=== PATIENT | male | born 1940 ===

== ENCOUNTER 2022-08-05 08:04 | Outpatient (CLI) | payer MEDICARE, BC, SELFPAY ==
--- NOTE | 2022-08-05 08:00 | RT.EKG_ITS ---
APPROVED REPORT Exam: Resting ECG Reason for Exam: ASCVD Patient Location: O HR:64 bpm ECG Measurements Heart Rate 64 AXIS NC 123 P -5 QRSd 94 QRS 41 QT 405 T 46 QTc 418 Conclusion Sinus rhythm...normal P axis, V-rate 50- 99 Normal Electrocardiogram
== END 2022-08-05 08:05 | disposition home or self-care (01) ==
LOC: DI.CARD 08:05
PROVIDERS: Visit Provider Internal Medicine Cardiovascular Disease
DX: I25.10 Atherosclerotic heart disease of native coronary artery without angina pectoris (principal)
CPT/HCPCS: 93010

== ENCOUNTER → 2022-08-05 13:59 | Outpatient (BNVA) | payer MEDICARE, OTHER, SELFPAY | PROVIDERS: Visit Provider Internal Medicine Cardiovascular Disease | DX: I25.10 Atherosclerotic heart disease of native coronary artery without angina pectoris (principal) | CPT/HCPCS: 99203 ==

== ENCOUNTER 2023-09-19 15:59 | Outpatient (RCR) | payer MEDICARE, OTHER, SELFPAY | END 2023-09-21 23:59 | disposition home or self-care (01) | LOC: CR 15:59 | PROVIDERS: Visit Provider Internal Medicine Interventional Cardiology | DX: I70.90 Unspecified atherosclerosis (principal) ==

== ENCOUNTER 2023-09-24 11:31 | Outpatient (RCR) | payer MEDICARE, OTHER, SELFPAY | END 2023-10-22 23:59 | disposition home or self-care (01) | LOC: CR 11:31 | PROVIDERS: Visit Provider Internal Medicine Interventional Cardiology | DX: R69 Illness, unspecified (principal) ==

== ENCOUNTER 2023-11-17 10:00 | Outpatient (RCR) | payer MEDICARE, OTHER, SELFPAY | END 2023-11-20 23:59 | disposition home or self-care (01) | LOC: CR 10:00 | PROVIDERS: Visit Provider Internal Medicine Cardiovascular Disease | DX: I25.810 Atherosclerosis of coronary artery bypass graft(s) without angina pectoris (principal); Z51.89 Encounter for other specified aftercare | CPT/HCPCS: S9472 ==

== ENCOUNTER 2023-12-19 10:07 | Outpatient (RCR) | payer MEDICARE, BC, OTHER, SELFPAY | END 2023-12-21 23:59 | disposition home or self-care (01) | LOC: CR 10:07 | PROVIDERS: Visit Provider Internal Medicine Cardiovascular Disease | DX: I25.810 Atherosclerosis of coronary artery bypass graft(s) without angina pectoris (principal); Z51.89 Encounter for other specified aftercare | CPT/HCPCS: S9472 ==

== ENCOUNTER 2024-01-19 10:18 | Outpatient (RCR) | payer MEDICARE, OTHER, SELFPAY ==
--- NOTE | 2024-01-14 10:00 | RT.EKG_ITS ---
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
== END 2024-01-20 23:59 | disposition home or self-care (01) ==
LOC: CR 10:18
PROVIDERS: Visit Provider Internal Medicine Cardiovascular Disease
DX: I25.810 Atherosclerosis of coronary artery bypass graft(s) without angina pectoris (principal); Z51.89 Encounter for other specified aftercare
CPT/HCPCS: S9472

== ENCOUNTER 2024-02-04 10:34 | Outpatient (RCR) | payer MEDICARE, OTHER, SELFPAY | END 2024-02-20 23:59 | disposition home or self-care (01) | LOC: CR 10:34 | PROVIDERS: Visit Provider Internal Medicine Cardiovascular Disease | DX: I25.810 Atherosclerosis of coronary artery bypass graft(s) without angina pectoris (principal); Z51.89 Encounter for other specified aftercare | CPT/HCPCS: S9472 ==

== ENCOUNTER 2024-03-18 10:19 | Outpatient (RCR) | payer SELFPAY ==
[2024-02-24 10:39] VITALS: BP 148/80; PULSE 79
[2024-02-26 14:20] VITALS: BP 153/82; PULSE 64
[2024-03-02 11:54] VITALS: BP 128/78; PULSE 80
[2024-03-04 12:24] VITALS: BP 143/70; PULSE 73
[2024-03-09 13:14] VITALS: BP 161/73; PULSE 76
[2024-03-11 10:25] VITALS: BP 146/77; PULSE 74
[2024-03-18 10:10] VITALS: BP 184/92; PULSE 66
== END 2024-03-21 23:59 | disposition home or self-care (01) ==
LOC: CR 10:19
PROVIDERS: Visit Provider Internal Medicine Cardiovascular Disease
DX: R69 Illness, unspecified (principal)

== ENCOUNTER 2024-04-15 10:00 | Outpatient (RCR) | payer SELFPAY ==
[2024-03-30 09:54] VITALS: BP 165/84; PULSE 90
[2024-04-08 13:33] VITALS: BP 126/84; PULSE 90
[2024-04-15 10:00] VITALS: BP 155/82; PULSE 68
== END 2024-04-21 23:59 | disposition home or self-care (01) ==
LOC: CR 10:00
PROVIDERS: Visit Provider Internal Medicine Cardiovascular Disease
DX: R69 Illness, unspecified (principal)

== ENCOUNTER 2024-05-20 10:10 | Outpatient (RCR) | payer SELFPAY ==
[2024-04-22 00:33] VITALS: BP 155/82; PULSE 68
[2024-04-22 09:50] VITALS: BP 167/81; PULSE 65
[2024-04-27 13:46] VITALS: BP 151/81; PULSE 73
[2024-04-29 10:28] VITALS: BP 170/86; PULSE 65
[2024-05-04 09:54] VITALS: BP 155/81; PULSE 74
[2024-05-06 10:23] VITALS: BP 181/87; PULSE 74
[2024-05-11 10:21] VITALS: BP 124/73; PULSE 74
[2024-05-13 10:00] VITALS: BP 151/80; PULSE 93
[2024-05-18 10:03] VITALS: BP 157/81; PULSE 63
[2024-05-20 10:20] VITALS: BP 131/65; PULSE 72
== END 2024-05-22 23:59 | disposition home or self-care (01) ==
LOC: CR 10:10
PROVIDERS: Visit Provider Internal Medicine Cardiovascular Disease
DX: R69 Illness, unspecified (principal)

== ENCOUNTER 2024-06-17 09:59 | Outpatient (RCR) | payer SELFPAY ==
[2024-05-23 00:31] VITALS: BP 155/82; PULSE 68
[2024-05-25 10:28] VITALS: BP 155/71; PULSE 66
[2024-05-27 10:15] VITALS: BP 134/69; PULSE 67
[2024-06-01 10:12] VITALS: BP 117/68; PULSE 74
[2024-06-03 10:29] VITALS: BP 90/53; PULSE 77
[2024-06-08 10:54] VITALS: BP 117/64; PULSE 76
[2024-06-10 10:55] VITALS: BP 137/78; PULSE 72
[2024-06-15 10:25] VITALS: BP 113/61; PULSE 75
[2024-06-17 10:01] VITALS: BP 119/68; PULSE 81
== END 2024-06-21 23:59 | disposition home or self-care (01) ==
LOC: CR 09:59
PROVIDERS: Visit Provider Internal Medicine Cardiovascular Disease
DX: R69 Illness, unspecified (principal)
CPT/HCPCS: S9472

== ENCOUNTER 2024-07-22 09:53 | Outpatient (RCR) | payer SELFPAY ==
[2024-06-22 13:19] VITALS: BP 139/75; PULSE 70
[2024-06-24 10:00] VITALS: BP 142/74; PULSE 74; O2SAT 97
[2024-06-29 10:07] VITALS: BP 142/72; PULSE 67
[2024-07-01 13:14] VITALS: BP 142/75; PULSE 69
[2024-07-06 10:00] VITALS: BP 129/61; PULSE 68
[2024-07-08 09:44] VITALS: BP 118/59; PULSE 65; O2SAT 98
[2024-07-13 10:15] VITALS: BP 145/76; PULSE 71
[2024-07-15 09:57] VITALS: BP 122/65; PULSE 66; O2SAT 98
[2024-07-20 10:15] VITALS: BP 150/70; PULSE 68
[2024-07-22 10:58] VITALS: BP 157/80; PULSE 84
== END 2024-07-22 23:59 | disposition home or self-care (01) ==
LOC: CR 09:53
PROVIDERS: Visit Provider Internal Medicine Cardiovascular Disease
DX: R69 Illness, unspecified (principal)

== ENCOUNTER 2024-08-17 10:00 | Outpatient (RCR) | payer SELFPAY ==
[2024-07-23 00:15] VITALS: BP 157/80; PULSE 84
[2024-07-27 10:07] VITALS: BP 128/70; PULSE 75
[2024-08-03 10:00] VITALS: BP 108/63; PULSE 66
[2024-08-05 09:52] VITALS: BP 129/75; PULSE 68
[2024-08-10 10:08] VITALS: BP 141/77; PULSE 74
[2024-08-12 10:10] VITALS: BP 130/72; PULSE 64
[2024-08-17 13:45] VITALS: BP 140/69; PULSE 68
== END 2024-08-21 23:59 | disposition home or self-care (01) ==
LOC: CR 10:00
PROVIDERS: Visit Provider Internal Medicine Cardiovascular Disease
DX: R69 Illness, unspecified (principal)

== ENCOUNTER 2024-09-09 10:14 | Outpatient (RCR) | payer SELFPAY ==
[2024-08-22 00:23] VITALS: BP 157/80; PULSE 84
[2024-08-24 10:40] VITALS: BP 129/64; PULSE 71
[2024-08-26 09:52] VITALS: BP 139/69; PULSE 65
[2024-09-02 09:57] VITALS: BP 153/75; PULSE 72
[2024-09-07 10:07] VITALS: BP 143/77; PULSE 67
[2024-09-09 10:21] VITALS: BP 129/69; PULSE 62
== END 2024-09-21 23:59 | disposition home or self-care (01) ==
LOC: CR 10:14
PROVIDERS: Visit Provider Internal Medicine Cardiovascular Disease
DX: R69 Illness, unspecified (principal)

== ENCOUNTER 2024-12-16 10:01 | Outpatient (RCR) | payer SELFPAY ==
[2024-12-14 11:18] VITALS: BP 128/73; PULSE 80
[2024-12-16 10:05] VITALS: BP 123/64; PULSE 78; O2SAT 98
== END 2024-12-20 23:59 | disposition home or self-care (01) ==
LOC: CR 10:01
PROVIDERS: PCP Internal Medicine; Visit Provider Internal Medicine Cardiovascular Disease
DX: R69 Illness, unspecified (principal)

== ENCOUNTER 2025-01-18 10:26 | Outpatient (RCR) | payer SELFPAY ==
[2024-12-21 00:22] VITALS: BP 123/64; PULSE 78
[2024-12-21 11:04] VITALS: BP 153/77; PULSE 68
[2024-12-28 10:48] VITALS: BP 118/65; PULSE 70
[2025-01-04 10:52] VITALS: BP 144/71; PULSE 68
[2025-01-06 10:22] VITALS: BP 120/69; PULSE 72
[2025-01-11 12:33] VITALS: BP 110/64; PULSE 73
[2025-01-13 10:13] VITALS: BP 123/65; PULSE 63
[2025-01-18 10:30] VITALS: BP 122/65; PULSE 75
== END 2025-01-19 23:59 | disposition home or self-care (01) ==
LOC: CR 10:26
PROVIDERS: PCP Internal Medicine; Visit Provider Internal Medicine Cardiovascular Disease
DX: R69 Illness, unspecified (principal)

== ENCOUNTER 2025-02-17 10:32 | Outpatient (RCR) | payer SELFPAY ==
[2025-01-20 00:21] VITALS: BP 123/64; PULSE 78
[2025-01-20 11:06] VITALS: BP 110/65; PULSE 71
[2025-01-25 10:24] VITALS: BP 125/68; PULSE 69
[2025-01-27 10:23] VITALS: BP 119/64; PULSE 73
[2025-02-01 12:04] VITALS: BP 124/74; PULSE 77
[2025-02-03 10:49] VITALS: BP 133/74; PULSE 77
[2025-02-08 10:18] VITALS: BP 120/67; PULSE 70
[2025-02-10 10:12] VITALS: BP 125/67; PULSE 71
[2025-02-15 12:02] VITALS: BP 114/58; PULSE 79
[2025-02-17 10:56] VITALS: BP 128/67; PULSE 67
== END 2025-02-19 23:59 | disposition home or self-care (01) ==
LOC: CR 10:32
PROVIDERS: PCP Internal Medicine; Visit Provider Internal Medicine Cardiovascular Disease
DX: R69 Illness, unspecified (principal)

== ENCOUNTER 2025-03-15 10:00 | Outpatient (RCR) | payer SELFPAY ==
[2025-02-20 00:13] VITALS: BP 123/64; PULSE 78
[2025-02-22 11:13] VITALS: BP 117/69; PULSE 69
[2025-02-24 10:16] VITALS: BP 112/68; PULSE 77
[2025-03-01 10:34] VITALS: BP 114/67; PULSE 74
[2025-03-03 11:29] VITALS: BP 130/73; PULSE 79
[2025-03-08 10:09] VITALS: BP 111/67; PULSE 74
[2025-03-10 10:41] VITALS: BP 106/62; PULSE 76
[2025-03-15 10:20] VITALS: BP 98/59; PULSE 77
== END 2025-03-21 23:59 | disposition home or self-care (01) ==
LOC: CR 10:00
PROVIDERS: PCP Internal Medicine; Visit Provider Internal Medicine Cardiovascular Disease
DX: R69 Illness, unspecified (principal)

== ENCOUNTER 2025-06-28 10:03 | Outpatient (RCR) | payer SELFPAY ==
[2025-06-28 10:05] VITALS: BP 122/72; PULSE 79
== END 2025-07-22 23:59 | disposition home or self-care (01) ==
LOC: CR 10:03
PROVIDERS: PCP Internal Medicine; Visit Provider Internal Medicine Cardiovascular Disease
DX: R69 Illness, unspecified (principal)

== ENCOUNTER 2025-08-11 10:00 | Outpatient (RCR) | payer SELFPAY ==
[2025-07-23 00:26] VITALS: BP 122/72; PULSE 79
[2025-07-28 11:26] VITALS: BP 128/76; PULSE 101
[2025-08-02 10:19] VITALS: BP 107/71; PULSE 85
[2025-08-11 10:22] VITALS: BP 119/71; PULSE 80
== END 2025-08-21 23:59 | disposition home or self-care (01) ==
LOC: CR 10:00
PROVIDERS: PCP Internal Medicine; Visit Provider Internal Medicine Cardiovascular Disease
DX: R69 Illness, unspecified (principal)